=== PATIENT | male | born 1975 | race Caucasian/White ===

== ENCOUNTER 2024-05-30 17:20 | Inpatient (IN) | payer MEDICAID ==
[~2024-05-30] VITALS: Ht 165.1 cm; Wt 100.0 kg
[2024-05-30] MEDS ORDERED: 0.9% SODIUM CHLORIDE 10 ML SYRINGE IVP PRN (17:45)
[2024-05-30] MEDS ORDERED: VANCOMYCIN 1.25 GM/WATER(PEG) 250 ML IV ONE (17:45)
[2024-05-30 17:50] LABS: BASOPHILS % (AUTO) 0.3 % (0.0-2.0); EOSINOPHILS % (AUTO) 5.9 % (1.0-6.0); HEMATOCRIT 46.2 % (41-53); HEMOGLOBIN 14.6 g/dL (13.5-17.5); LYMPHOCYTES # (AUTO) 2.5 K/uL (1.0-4.8); MEAN CORPUSCULAR HEMOGLOBIN 25.7 pg (26.0-34.0); MEAN CORPUSCULAR HGB CONC 31.6 G/dL (31.0-37.0); MEAN CORPUSCULAR VOLUME 81 fL (80-100); MONOCYTES # (AUTO) 0.9 K/uL (0.1-1.0); MONOCYTES % (AUTO) 7.8 % (2.0-9.0); NEUTROPHILS # (AUTO) 7.7 K/uL (1.8-7.7); PLATELET COUNT (AUTO) 355 K/uL (150-450); RED BLOOD CELL COUNT(AUTO) 5.67 MIL/uL (4.50-5.90); RED CELL DISTRIBUTION WIDTH 15.5 % (11.5-14.5); WHITE BLOOD COUNT (AUTO) 11.8 K/uL (4.5-11.0)
[2024-05-30 17:59] LABS: ANION GAP 12 mmol/L (8-16); CALCIUM, TOTAL 8.7 mg/dL (8.8-10.5); CARBON DIOXIDE 21 mmol/L (22-29); CHLORIDE 102 mmol/L (98-107); CREATININE 1.44 mg/dL (0.60-1.30); GLOMERULAR FILTR. RATE CALC 53 mL/min (>60); GLUCOSE,RANDOM 133 mg/dL (70-110); POTASSIUM 4.5 mmol/L (3.5-5.1); SODIUM SERUM 135 mmol/L (136-145); UREA NITROGEN, BLOOD 14 mg/dL (7-18)
[2024-05-30 18:03] LABS: BILIRUBIN,DIRECT 0.1 mg/dL (0.00-0.20); BILIRUBIN,TOTAL 0.6 mg/dL (0.1-1.0); PROTHROMBIN TIME 10.6 SEC (9.4-11.6); TOTAL PROTEIN, SERUM 7.8 g/dL (6.4-8.2)
[2024-05-30] MEDS: ACETAMINOPHEN 1000 MG/ISO-OSM 100 ML IV ONE (18:03)
[2024-05-30] MEDS: SODIUM CHLORIDE 0.9% 1,000 ML IV ONE (18:03)
[2024-05-30 18:06] LABS: ALCOHOL, BLOOD (SERUM) < 3 mg/dL (0-10)
[2024-05-30 18:08] LABS: B-TYPE NATRIURETIC PEPTIDE 8 pg/mL (0-100)
[2024-05-30 18:09] LABS: CREATINE KINASE, TOTAL ONLY 133 U/L (39-308); TROPONIN I-HIGH SENSITIVITY 11 ng/L (<76)
[2024-05-30 18:10] LABS: LACTIC ACID 3.5 mmol/L (0.4-2.0)
[2024-05-30 18:13] LABS: ERYTHROCYTE SEDIMENTATION RATE 38 MM/HR (0-15)
[2024-05-30] MEDS: CLINDAMYCIN 600 MG/D5% WATER 50 ML IV ONE (18:13)
[2024-05-30] MEDS: VANCOMYCIN HCL 1.25 GM in DEXTROSE 5%-WATER 250 ML IV ONE (18:15)
[2024-05-30 18:39] LABS: COVID AG,FIA SOURCE NASAL SWAB
[2024-05-30 18:58] LABS: SARS-COV2 (COVID) ANTIGEN,FIA Negative (Negative)
[2024-05-30 18:59] LABS: INFLUENZA TYPE A NEGATIVE FOR TYPE A (NEGATIVE); INFLUENZA TYPE B NEGATIVE FOR TYPE B (NEGATIVE)
[2024-05-30] MEDS: SODIUM CHLORIDE 0.9% 2,000 ML IV ONE (19:05)
[2024-05-30] MEDS: SODIUM CHLORIDE 0.9% 1,000 ML IV SCH (19:45)
[2024-05-30] MEDS ORDERED: ONDANSETRON HCL 4 MG/2 ML VIAL IVP PRN (19:45)
[2024-05-30] MEDS: *CLINICAL-CEFEPIME DOSING CLINICAL ONE (19:45)
[2024-05-30] MEDS ORDERED: ACETAMINOPHEN 325 MG TABLET PO PRN (19:45)
[2024-05-30] MEDS: ACYCLOVIR 1,000 MG in DEXTROSE 5%-WATER 150 ML IV ONE (20:18)
[2024-05-30] MEDS: DOCUSATE SODIUM 100 MG CAPSULE PO SCH (21:00)
[2024-05-30 21:05] LABS: APPEARANCE,URINE CLEAR (CLEAR); BILIRUBIN,URINE NEGATIVE (NEGATIVE); COLOR,URINE COLORLESS (YELLOW); GLUCOSE, URINE (UA) NEGATIVE (NEGATIVE); KETONES,URINE NEGATIVE (NEGATIVE); LEUKOCYTE ESTERASE ,URINE NEGATIVE (NEGATIVE); NITRATE,URINE NEGATIVE (NEGATIVE); OCCULT BLOOD,URINE NEGATIVE (NEGATIVE); PROTEIN,URINE NEGATIVE (NEGATIVE); SPECIFIC GRAVITIY, URINE 1.008 (1.003-1.030); UROBILINOGEN,URINE <=1.0 mg/dL (<=1.0)
[2024-05-30 21:18] LABS: ALCOHOL, URINE DRUG SCREEN NEGATIVE (NEGATIVE); AMPHET/METH SCREEN,URINE NEGATIVE (NEGATIVE); BARBITURATE SCREEN, URINE NEGATIVE (NEGATIVE); BENZODIAZEPINES SCREEN,URINE NEGATIVE (NEGATIVE); CANNABINOID SCREEN,URINE NEGATIVE (NEGATIVE); COCAINE SCREEN,URINE NEGATIVE (NEGATIVE); METHADONE SCREEN, URINE NEGATIVE (NEGATIVE); OPIATE SCREEN,URINE NEGATIVE (NEGATIVE); PHENCYCLIDINE SCREEN,URINE NEGATIVE (NEGATIVE)
[2024-05-30 22:00] VITALS: BP 134/79; PULSE 72; RESP 18; TEMP 98.2; O2SAT 99
[2024-05-30] MEDS: CEFEPIME HCL 2 GM in DEXTROSE 5%-WATER 50 ML IV SCH (22:00)
[2024-05-30] MEDS: HEPARIN SODIUM,PORCINE 5,000 UNITS/ML VIAL SQ SCH (23:32)
[2024-05-31] MEDS: SODIUM CHLORIDE 0.9% 1,000 ML IV SCH (01:59)
[2024-05-31 05:11] VITALS: BP 123/69; PULSE 71; RESP 18; TEMP 98.7; O2SAT 96
[2024-05-31 08:25] LABS: BASOPHILS % (AUTO) 0.2 % (0.0-2.0); HEMATOCRIT 42.2 % (41-53); HEMOGLOBIN 13.4 g/dL (13.5-17.5); LYMPHOCYTES # (AUTO) 1.6 K/uL (1.0-4.8); LYMPHOCYTES % (AUTO) 15.9 % (22.0-44.0); MEAN CORPUSCULAR HEMOGLOBIN 25.8 pg (26.0-34.0); MEAN CORPUSCULAR HGB CONC 31.8 G/dL (31.0-37.0); MEAN CORPUSCULAR VOLUME 81 fL (80-100); MONOCYTES # (AUTO) 0.7 K/uL (0.1-1.0); MONOCYTES % (AUTO) 6.7 % (2.0-9.0); NEUTROPHILS % (AUTO) 70.2 % (40.0-70.0); PLATELET COUNT (AUTO) 259 K/uL (150-450); RED BLOOD CELL COUNT(AUTO) 5.21 MIL/uL (4.50-5.90); RED CELL DISTRIBUTION WIDTH 15.6 % (11.5-14.5)
[2024-05-31 08:39] LABS: ANION GAP 10 mmol/L (8-16); CARBON DIOXIDE 25 mmol/L (22-29); CHLORIDE 105 mmol/L (98-107); CREATININE 0.84 mg/dL (0.60-1.30); GLOMERULAR FILTR. RATE CALC > 60 mL/min (>60); GLUCOSE,RANDOM 92 mg/dL (70-110); SODIUM SERUM 140 mmol/L (136-145); UREA NITROGEN, BLOOD 10 mg/dL (7-18)
[2024-05-31 09:08] VITALS: BP 114/67; PULSE 74; RESP 18; TEMP 98; O2SAT 99
[2024-05-31 16:07] VITALS: BP 111/67; PULSE 79; RESP 18; TEMP 98; O2SAT 98
[2024-05-31 20:40] VITALS: BP 120/66; PULSE 87; RESP 18; TEMP 98.2; O2SAT 96
[2024-05-31] MEDS: TRIAMCINOLONE 0.1% 15 GM OINTMENT TP SCH (20:54)
[2024-05-31] MEDS: DOXYCYCLINE HYCLATE 100 MG TABLET PO SCH (20:54)
[2024-05-31 22:06] LABS: HIV 1-2 SCREEN 4TH GEN W/RFLX Non Reactive (Non Reactive)
[2024-06-01 00:06] LABS: GLU 6-PHOSPATE DEHYDRO-RBC 4.57 x10E6/uL (4.14-5.80)
[2024-06-01 04:50] VITALS: BP 128/80; PULSE 87; RESP 18; TEMP 97.3; O2SAT 99
[2024-06-01 07:07] LABS: GLU 6-PHOSPATE DEHYDRO-QUANT 419 (127-427)
[2024-06-01 08:00] VITALS: BP 117/84; PULSE 75; RESP 18; TEMP 97.3; O2SAT 98
[2024-06-01] MEDS: OMEPRAZOLE 10 MG CAPSULE PO SCH (09:23)
[2024-06-01] MEDS: PredniSONE 20 MG TABLET PO SCH (09:24)
[2024-06-01 16:00] VITALS: BP 120/78; PULSE 74; RESP 18; TEMP 97.1; O2SAT 99
[2024-06-01 19:45] VITALS: BP 117/79; PULSE 86; RESP 18; TEMP 98.8; O2SAT 96
[2024-06-01] MEDS: TRIAMCINOLONE 0.1% TP SCH (21:05)
[2024-06-02 06:41] VITALS: BP 127/70; PULSE 66; RESP 18; TEMP 97.8; O2SAT 97
[2024-06-02 07:12] VITALS: BP 111/74; PULSE 63; RESP 20; TEMP 97.7; O2SAT 96
[2024-06-02] MEDS: MULTIVITAMINS WITH MINERALS, THERAPEUTIC TABLET PO SCH (08:59)
[2024-06-02] MEDS ORDERED: DOXY50 PO (10:27)
[2024-06-02] MEDS ORDERED: TRIA15CR49 TP (10:27)
[2024-06-02] MEDS ORDERED: MULT-1203 PO (10:28)
[2024-06-02] MEDS ORDERED: PRED-554 PO (10:29)
[2024-06-02] MEDS ORDERED: OMEP-148 PO (10:29)
== END 2024-06-02 14:35 | disposition home or self-care (01) | DRG 381 ==
LOC: EMS 17:20 → EDH 20:16 → 6N 21:41
PROVIDERS: ADMIT Internal Medicine; ATTEND Internal Medicine
DX: L12.0 Bullous pemphigoid (principal); N17.9 Acute kidney failure, unspecified; F32.2 Major depressive disorder, single episode, severe without psychotic features; R45.851 Suicidal ideations; E66.9 Obesity, unspecified; Z68.36 Body mass index [BMI] 36.0-36.9, adult; E87.70 Fluid overload, unspecified; J45.909 Unspecified asthma, uncomplicated; Z59.00 Homelessness unspecified
CPT/HCPCS: 71045; 80048; 80076; 80307; 81003; 82550; 82955; 83605; 83735; 83880; 84145; 84484; 85025; 85041; 85610; 85651; 86140; 86592; 87040; 87389; 87430; 87804; 93005; 96365; 96368; 97163; 97530; 99285; G0480; J0131; J0133; J0692; J1644; J3490; J7030; J7060; 36415-L1; 36415-TC

== ENCOUNTER → 2024-06-03 | Emergency (ER) | payer MEDICAID ==
[~2024-06-03] VITALS: Ht 165.1 cm; Wt 100.0 kg
[~2024-06-03] MED LIST: DOXY50 PO; MULT-1203 PO; OMEP-148 PO; PRED-554 PO; TRIA15CR49 TP
[2024-06-03 11:06] VITALS: BP 135/89; PULSE 64; RESP 16; TEMP 97.7; O2SAT 99
[2024-06-03 12:25] LABS: ANION GAP 5 mmol/L (8-16); BASOPHILS % (AUTO) 0.5 % (0.0-2.0); CALCIUM, TOTAL 8.3 mg/dL (8.8-10.5); CARBON DIOXIDE 27 mmol/L (22-29); CHLORIDE 106 mmol/L (98-107); CREATININE 0.83 mg/dL (0.60-1.30); EOSINOPHILS % (AUTO) 6.1 % (1.0-6.0); GLOMERULAR FILTR. RATE CALC > 60 mL/min (>60); GLUCOSE,RANDOM 92 mg/dL (70-110); HEMATOCRIT 39.2 % (41-53); HEMOGLOBIN 12.4 g/dL (13.5-17.5); LYMPHOCYTES # (AUTO) 2.7 K/uL (1.0-4.8); MEAN CORPUSCULAR HEMOGLOBIN 25.6 pg (26.0-34.0); MEAN CORPUSCULAR HGB CONC 31.8 G/dL (31.0-37.0); MEAN CORPUSCULAR VOLUME 81 fL (80-100); MONOCYTES # (AUTO) 1.4 K/uL (0.1-1.0); MONOCYTES % (AUTO) 10.8 % (2.0-9.0); NEUTROPHILS % (AUTO) 61.6 % (40.0-70.0); PLATELET COUNT (AUTO) 280 K/uL (150-450); POTASSIUM 3.7 mmol/L (3.5-5.1); RED BLOOD CELL COUNT(AUTO) 4.86 MIL/uL (4.50-5.90); RED CELL DISTRIBUTION WIDTH 15.6 % (11.5-14.5); SODIUM SERUM 138 mmol/L (136-145); UREA NITROGEN, BLOOD 15 mg/dL (7-18)
[2024-06-03] MEDS: PredniSONE 20 MG TABLET PO ONE (13:34)
== END | disposition home or self-care (01) ==
LOC: EMS 10:48
DX: L12.0 Bullous pemphigoid (principal); F32.9 Major depressive disorder, single episode, unspecified; G43.909 Migraine, unspecified, not intractable, without status migrainosus; Z79.899 Other long term (current) drug therapy; Z79.52 Long term (current) use of systemic steroids
CPT/HCPCS: 99283; 80048; 85025; 36415; J7512

== ENCOUNTER 2024-07-02 09:26 | Inpatient (IN) | payer MEDICAID ==
[~2024-07-02] VITALS: Ht 157.5 cm; Wt 100.0 kg
[~2024-07-02 09:26] MED LIST changes: -DOXY50 PO; -MULT-1203 PO; -OMEP-148 PO; +SERT-162 PO; +SERT-440 PO
[2024-07-02] MEDS ORDERED: HYDR50CA6 PO (09:40)
[2024-07-02] MEDS ORDERED: OMEP1CAP32 PO (09:40)
[2024-07-02] MEDS ORDERED: OMEP20CA12 PO (11:27)
[2024-07-02] MEDS ORDERED: PRED50TA2 PO (11:27)
[2024-07-02] MEDS ORDERED: MULT-662 PO (11:27)
[2024-07-02] MEDS ORDERED: TRI115O TP (11:27)
[2024-07-02] MEDS ORDERED: VANCOMYCIN 1.25 GM/WATER(PEG) 250 ML IV ONE (11:30)
[2024-07-02 12:04] LABS: BASOPHILS % (AUTO) 0.1 % (0.0-2.0); EOSINOPHILS % (AUTO) 0.1 % (1.0-6.0); HEMATOCRIT 39.4 % (41-53); HEMOGLOBIN 12.7 g/dL (13.5-17.5); LYMPHOCYTES # (AUTO) 1.1 K/uL (1.0-4.8); LYMPHOCYTES % (AUTO) 5.2 % (22.0-44.0); MEAN CORPUSCULAR HEMOGLOBIN 25.1 pg (26.0-34.0); MEAN CORPUSCULAR HGB CONC 32.2 G/dL (31.0-37.0); MEAN CORPUSCULAR VOLUME 78 fL (80-100); MONOCYTES # (AUTO) 0.6 K/uL (0.1-1.0); MONOCYTES % (AUTO) 2.7 % (2.0-9.0); NEUTROPHILS # (AUTO) 19.2 K/uL (1.8-7.7); PLATELET COUNT (AUTO) 363 K/uL (150-450); RED BLOOD CELL COUNT(AUTO) 5.05 MIL/uL (4.50-5.90); RED CELL DISTRIBUTION WIDTH 16.3 % (11.5-14.5); WHITE BLOOD COUNT (AUTO) 20.8 K/uL (4.5-11.0)
[2024-07-02 12:06] LABS: NEUTROPHILS % (AUTO) 91.9 % (40.0-70.0)
[2024-07-02 12:12] LABS: ANION GAP 8 mmol/L (8-16); CALCIUM, TOTAL 8.5 mg/dL (8.8-10.5); CARBON DIOXIDE 27 mmol/L (22-29); CHLORIDE 96 mmol/L (98-107); CREATININE 1.09 mg/dL (0.60-1.30); GLOMERULAR FILTR. RATE CALC > 60 mL/min (>60); GLUCOSE,RANDOM 105 mg/dL (70-110); POTASSIUM 4.1 mmol/L (3.5-5.1); SODIUM SERUM 130 mmol/L (136-145); UREA NITROGEN, BLOOD 12 mg/dL (7-18)
[2024-07-02] MEDS: PIPERACILLIN SODIUM/TAZOBACTAM 4.5 GM in DEXTROSE 5%-WATER 100 ML IV ONE (12:27)
[2024-07-02 12:29] LABS: LACTIC ACID 1.5 mmol/L (0.4-2.0)
[2024-07-02] MEDS ORDERED: SODIUM CHLORIDE 0.9% 100 ML ONE (12:37)
[2024-07-02] MEDS ORDERED: IOHEXOL 350 MG/ML 100 ML VIAL ONE (12:37)
[2024-07-02 13:22] LABS: RBC MORPHOLOGY COMMENT ABNORMAL RBC MORPH
[2024-07-02] MEDS: VANCOMYCIN HCL 1.25 GM in DEXTROSE 5%-WATER 250 ML IV ONE (13:40)
[2024-07-02] MEDS ORDERED: ONDANSETRON HCL 4 MG/2 ML VIAL IVP PRN (15:00)
[2024-07-02] MEDS ORDERED: ZOLPIDEM TARTRATE 5 MG TABLET PO PRN (15:00)
[2024-07-02] MEDS ORDERED: MORPHINE SULFATE 2 MG/ML SYRINGE IVP PRN (15:00)
[2024-07-02] MEDS ORDERED: BISACODYL 10 MG RECTAL RECTAL SUPPOSITORY PR PRN (15:00)
[2024-07-02] MEDS ORDERED: HYDROCODONE/ACETAMINOPHEN 5-325 MG TABLET PO PRN (15:00)
[2024-07-02] MEDS ORDERED: MAGNESIUM HYDROXIDE SUSPENSION 30 ML UDCUP PO PRN (15:00)
[2024-07-02] MEDS ORDERED: ACETAMINOPHEN 325 MG TABLET PO PRN (15:00)
[2024-07-02] MEDS: HEPARIN SODIUM,PORCINE 5,000 UNITS/ML VIAL SQ SCH (15:37)
[2024-07-02] MEDS ORDERED: SODIUM CHLORIDE 0.9% 500 ML IV ONE (18:49)
[2024-07-02] MEDS: PIPERACILLIN/TAZO 3.375 GM/D5W 50 ML IV SCH (18:50)
[2024-07-02 20:04] VITALS: BP 123/82; PULSE 66; RESP 18; TEMP 97.9; O2SAT 96
[2024-07-02] MEDS: DOCUSATE SODIUM 100 MG CAPSULE PO SCH (20:07)
[2024-07-02] MEDS: VANCOMYCIN HCL 1.25 GM in DEXTROSE 5%-WATER 250 ML IV SCH (20:08)
[2024-07-03] MEDS ORDERED: EPHEDrine SULFATE 50 MG/ML VIAL ONE (05:46)
[2024-07-03] MEDS ORDERED: ONDANSETRON HCL 4 MG/2 ML VIAL ONE (05:46)
[2024-07-03] MEDS ORDERED: ROCURONIUM BROMIDE 10 MG/ML 5 ML VIAL ONE (05:46)
[2024-07-03] MEDS ORDERED: PROPOFOL 1% 20 ML VIAL IVP ONE (05:46)
[2024-07-03] MEDS ORDERED: 0.9% SODIUM CHLORIDE 10 ML VIAL ONE (05:46)
[2024-07-03] MEDS ORDERED: MIDAZOLAM HCL 2 MG/2 ML VIAL ONE (05:46)
[2024-07-03] MEDS ORDERED: SUGAMMADEX SODIUM 200 MG/2 ML VIAL IVP ONE (05:46)
[2024-07-03] MEDS ORDERED: LIDOCAINE/PF 2% 5 ML VIAL ONE (05:46)
[2024-07-03] MEDS ORDERED: FentaNYL CITRATE PF 100 MCG/2 ML VIAL ONE (05:46)
[2024-07-03 05:48] VITALS: BP 118/75; PULSE 65; RESP 18; TEMP 97.7; O2SAT 98
[2024-07-03 07:34] LABS: BASOPHILS % (AUTO) 0.4 % (0.0-2.0); HEMATOCRIT 37.1 % (41-53); HEMOGLOBIN 12.1 g/dL (13.5-17.5); LYMPHOCYTES # (AUTO) 2.7 K/uL (1.0-4.8); LYMPHOCYTES % (AUTO) 18.1 % (22.0-44.0); MEAN CORPUSCULAR HEMOGLOBIN 25.5 pg (26.0-34.0); MEAN CORPUSCULAR HGB CONC 32.6 G/dL (31.0-37.0); MEAN CORPUSCULAR VOLUME 78 fL (80-100); MONOCYTES # (AUTO) 0.9 K/uL (0.1-1.0); MONOCYTES % (AUTO) 5.7 % (2.0-9.0); NEUTROPHILS # (AUTO) 11.4 K/uL (1.8-7.7); NEUTROPHILS % (AUTO) 74.8 % (40.0-70.0); PLATELET COUNT (AUTO) 336 K/uL (150-450); RED BLOOD CELL COUNT(AUTO) 4.74 MIL/uL (4.50-5.90); RED CELL DISTRIBUTION WIDTH 16.3 % (11.5-14.5); WHITE BLOOD COUNT (AUTO) 15.2 K/uL (4.5-11.0)
[2024-07-03 07:52] LABS: ANION GAP 5 mmol/L (8-16); CALCIUM, TOTAL 8.5 mg/dL (8.8-10.5); CARBON DIOXIDE 32 mmol/L (22-29); CHLORIDE 97 mmol/L (98-107); CREATININE 0.99 mg/dL (0.60-1.30); GLOMERULAR FILTR. RATE CALC > 60 mL/min (>60); GLUCOSE,RANDOM 82 mg/dL (70-110); POTASSIUM 4.8 mmol/L (3.5-5.1); SODIUM SERUM 134 mmol/L (136-145); UREA NITROGEN, BLOOD 17 mg/dL (7-18)
[2024-07-03 08:00] VITALS: BP 121/83; PULSE 64; RESP 18; TEMP 97.9; O2SAT 98
[2024-07-03] MEDS: PANTOPRAZOLE SODIUM 40 MG DR TABLET PO SCH (08:37)
[2024-07-03] MEDS: VANCOMYCIN 1.5 GM/WATER(PEG) 300 ML IV SCH (09:10)
[2024-07-03] MEDS ORDERED: BUPIVACAINE HCL/PF 0.5% 30 ML VIAL ONE (13:37)
[2024-07-03] MEDS ORDERED: LIDOCAINE 2%/EPI 1:200,000/PF 20 ML VIAL ONE (13:37)
[2024-07-03] MEDS: ETHYL ALCOHOL 62% ANTISEPTIC NASAL SANITIZER 0.6 ML AMPUL NASAL ONE (13:43)
[2024-07-03] MEDS ORDERED: RINGERS SOLUTION,LACTATED 1,000 ML IV ONE (13:46)
[2024-07-03] MEDS ORDERED: MEPERIDINE-PF 25 MG/ML VIAL IVP PRN (14:00)
[2024-07-03] MEDS ORDERED: FentaNYL CITRATE PF 100 MCG/2 ML VIAL IVP PRN (14:00)
[2024-07-03] MEDS ORDERED: HYDROmorphone HCL 2 MG/ML SYRINGE IVP PRN (14:00)
[2024-07-03] MEDS: CHLORHEXIDINE GLUCONATE 2% TOWELETTE [2'S/6'S] TP ONE (14:04)
[2024-07-03] MEDS: RINGERS SOLUTION,LACTATED 1,000 ML IV ONE (14:06)
[2024-07-03] MEDS ORDERED: ACETAMINOPHEN 500 MG TABLET PO PRN (15:30)
[2024-07-03] MEDS ORDERED: ONDANSETRON HCL 4 MG/2 ML VIAL IM PRN (15:30)
[2024-07-03 16:27] VITALS: BP 112/72; PULSE 61; RESP 19; TEMP 98; O2SAT 98
[2024-07-03] MEDS: HYDROCODONE/ACETAMINOPHEN 5-325 MG TABLET PO PRN (17:11)
[2024-07-03 17:30] VITALS: PULSE 65; RESP 20; O2SAT 98
[2024-07-03 19:30] VITALS: BP 95/59; PULSE 74; RESP 20; TEMP 97.5; O2SAT 97
[2024-07-03] MEDS: OXYGEN THERAPY IH SCH (20:00)
[2024-07-04 03:24] VITALS: BP 97/70; PULSE 65; RESP 18; TEMP 98.6; O2SAT 96
[2024-07-04 07:00] VITALS: BP 108/77; PULSE 67; RESP 19; TEMP 98.1; O2SAT 98
[2024-07-04 08:42] LABS: BASOPHILS % (AUTO) 1.4 % (0.0-2.0); EOSINOPHILS % (AUTO) 1.8 % (1.0-6.0); HEMATOCRIT 38.1 % (41-53); HEMOGLOBIN 12.1 g/dL (13.5-17.5); LYMPHOCYTES # (AUTO) 1.7 K/uL (1.0-4.8); LYMPHOCYTES % (AUTO) 14.5 % (22.0-44.0); MEAN CORPUSCULAR HEMOGLOBIN 25.1 pg (26.0-34.0); MEAN CORPUSCULAR HGB CONC 31.8 G/dL (31.0-37.0); MEAN CORPUSCULAR VOLUME 79 fL (80-100); MONOCYTES # (AUTO) 0.5 K/uL (0.1-1.0); MONOCYTES % (AUTO) 4.3 % (2.0-9.0); NEUTROPHILS # (AUTO) 9.1 K/uL (1.8-7.7); PLATELET COUNT (AUTO) 326 K/uL (150-450); RED BLOOD CELL COUNT(AUTO) 4.83 MIL/uL (4.50-5.90); RED CELL DISTRIBUTION WIDTH 16.7 % (11.5-14.5); WHITE BLOOD COUNT (AUTO) 11.6 K/uL (4.5-11.0)
[2024-07-04 08:49] LABS: ANION GAP 8 mmol/L (8-16); CALCIUM, TOTAL 8.3 mg/dL (8.8-10.5); CARBON DIOXIDE 27 mmol/L (22-29); CHLORIDE 96 mmol/L (98-107); CREATININE 1.14 mg/dL (0.60-1.30); GLOMERULAR FILTR. RATE CALC > 60 mL/min (>60); GLUCOSE,RANDOM 86 mg/dL (70-110); POTASSIUM 3.9 mmol/L (3.5-5.1); SODIUM SERUM 131 mmol/L (136-145); UREA NITROGEN, BLOOD 12 mg/dL (7-18)
[2024-07-04 15:00] VITALS: BP 123/104; PULSE 61; RESP 19; TEMP 97.3; O2SAT 99
[2024-07-04] MEDS: SERTRALINE HCL 100 MG TABLET PO SCH (17:14)
[2024-07-04] MEDS: ETHYL ALCOHOL 62% ANTISEPTIC NASAL SANITIZER 0.6 ML AMPUL NASAL SCH (20:29)
[2024-07-04 20:38] VITALS: BP 110/70; PULSE 75; RESP 18; TEMP 98.6; O2SAT 99
[2024-07-05] MEDS ORDERED: SODIUM CHLORIDE 0.9% 250 ML IV ONE (02:20)
[2024-07-05 04:00] VITALS: BP 120/71; PULSE 59; RESP 18; TEMP 97.7; O2SAT 100
[2024-07-05 08:39] VITALS: BP 132/81; PULSE 60; RESP 18; TEMP 97.8; O2SAT 100
[2024-07-05 09:42] LABS: BASOPHILS % (AUTO) 0.5 % (0.0-2.0); HEMOGLOBIN 11.8 g/dL (13.5-17.5); LYMPHOCYTES # (AUTO) 1.4 K/uL (1.0-4.8); LYMPHOCYTES % (AUTO) 16.3 % (22.0-44.0); MEAN CORPUSCULAR HGB CONC 31.8 G/dL (31.0-37.0); MEAN CORPUSCULAR VOLUME 79 fL (80-100); MONOCYTES # (AUTO) 0.3 K/uL (0.1-1.0); MONOCYTES % (AUTO) 3.1 % (2.0-9.0); NEUTROPHILS # (AUTO) 6.7 K/uL (1.8-7.7); NEUTROPHILS % (AUTO) 77.1 % (40.0-70.0); PLATELET COUNT (AUTO) 340 K/uL (150-450); RED BLOOD CELL COUNT(AUTO) 4.71 MIL/uL (4.50-5.90); RED CELL DISTRIBUTION WIDTH 16.4 % (11.5-14.5); WHITE BLOOD COUNT (AUTO) 8.7 K/uL (4.5-11.0)
[2024-07-05 09:58] LABS: CALCIUM, TOTAL 8.3 mg/dL (8.8-10.5); POTASSIUM 4.1 mmol/L (3.5-5.1); SODIUM SERUM 132 mmol/L (136-145); UREA NITROGEN, BLOOD 11 mg/dL (7-18)
[2024-07-05 10:58] LABS: ANION GAP 9 mmol/L (8-16); CARBON DIOXIDE 25 mmol/L (22-29); CHLORIDE 98 mmol/L (98-107); CREATININE 1.25 mg/dL (0.60-1.30); GLOMERULAR FILTR. RATE CALC > 60 mL/min (>60); GLUCOSE,RANDOM 163 mg/dL (70-110)
[2024-07-05] MEDS: CLINDAMYCIN HCL 300 MG PO SCH (15:56)
[2024-07-05 15:57] VITALS: BP 133/83; PULSE 72; RESP 18; TEMP 98.2; O2SAT 100
[2024-07-05 20:29] VITALS: BP 127/86; PULSE 74; RESP 18; TEMP 98.2; O2SAT 100
[2024-07-06 04:05] VITALS: BP 130/78; PULSE 65; RESP 16; TEMP 97.9; O2SAT 100
[2024-07-06 08:18] VITALS: BP 125/77; PULSE 62; RESP 18; TEMP 97.9; O2SAT 100
[2024-07-06 16:00] VITALS: BP 130/75; PULSE 70; RESP 19; TEMP 98; O2SAT 100
[2024-07-06 19:41] VITALS: BP 119/78; PULSE 74; RESP 19; TEMP 98.6; O2SAT 98
[2024-07-07 04:45] VITALS: BP 124/82; PULSE 67; RESP 18; TEMP 97.5; O2SAT 99
[2024-07-07 08:30] VITALS: BP 122/96; PULSE 71; RESP 18; TEMP 98.1; O2SAT 98
[2024-07-07 16:15] VITALS: BP 128/88; PULSE 77; RESP 18; TEMP 98; O2SAT 99
[2024-07-07 20:00] VITALS: BP 117/79; PULSE 67; RESP 20; TEMP 98.1; O2SAT 99
[2024-07-08 04:00] VITALS: BP 115/78; PULSE 65; RESP 18; TEMP 97.5; O2SAT 99
[2024-07-08 07:00] VITALS: BP 117/84; PULSE 60; RESP 19; TEMP 97.5; O2SAT 99
[2024-07-08 19:54] VITALS: BP 115/91; PULSE 85; RESP 18; TEMP 98.4; O2SAT 98
[2024-07-09 06:01] VITALS: BP 112/72; PULSE 69; RESP 18; TEMP 97.5; O2SAT 96
[2024-07-09 07:36] LABS: BASOPHILS % (AUTO) 0.9 % (0.0-2.0); EOSINOPHILS % (AUTO) 3.2 % (1.0-6.0); HEMATOCRIT 39.4 % (41-53); HEMOGLOBIN 12.8 g/dL (13.5-17.5); LYMPHOCYTES # (AUTO) 1.8 K/uL (1.0-4.8); LYMPHOCYTES % (AUTO) 30.4 % (22.0-44.0); MEAN CORPUSCULAR HEMOGLOBIN 25.4 pg (26.0-34.0); MEAN CORPUSCULAR HGB CONC 32.4 G/dL (31.0-37.0); MEAN CORPUSCULAR VOLUME 78 fL (80-100); MONOCYTES # (AUTO) 0.6 K/uL (0.1-1.0); MONOCYTES % (AUTO) 10.8 % (2.0-9.0); NEUTROPHILS # (AUTO) 3.2 K/uL (1.8-7.7); NEUTROPHILS % (AUTO) 54.7 % (40.0-70.0); PLATELET COUNT (AUTO) 431 K/uL (150-450); RED BLOOD CELL COUNT(AUTO) 5.03 MIL/uL (4.50-5.90); RED CELL DISTRIBUTION WIDTH 16.2 % (11.5-14.5); WHITE BLOOD COUNT (AUTO) 5.9 K/uL (4.5-11.0)
[2024-07-09 08:06] LABS: ANION GAP 5 mmol/L (8-16); CALCIUM, TOTAL 8.8 mg/dL (8.8-10.5); CARBON DIOXIDE 30 mmol/L (22-29); CHLORIDE 97 mmol/L (98-107); CREATININE 1.02 mg/dL (0.60-1.30); GLOMERULAR FILTR. RATE CALC > 60 mL/min (>60); GLUCOSE,RANDOM 80 mg/dL (70-110); POTASSIUM 4.6 mmol/L (3.5-5.1); SODIUM SERUM 132 mmol/L (136-145); UREA NITROGEN, BLOOD 18 mg/dL (7-18)
[2024-07-09 08:15] VITALS: BP 130/61; PULSE 60; RESP 18; TEMP 97.5; O2SAT 98
[2024-07-09 16:19] VITALS: BP 120/62; PULSE 79; RESP 18; TEMP 97.5; O2SAT 96
[2024-07-09 19:55] VITALS: BP 115/79; PULSE 73; RESP 18; TEMP 98.1; O2SAT 96
[2024-07-10 04:20] VITALS: BP 102/69; PULSE 65; RESP 19; TEMP 97.9; O2SAT 99
[2024-07-10 09:28] VITALS: BP 117/77; PULSE 85; RESP 17; TEMP 98.6; O2SAT 99
[2024-07-10 16:19] VITALS: BP 116/74; PULSE 76; RESP 18; TEMP 97.9; O2SAT 97
[2024-07-10 20:20] VITALS: BP 101/68; PULSE 73; RESP 18; TEMP 98.1; O2SAT 98
[2024-07-11 04:25] VITALS: BP 102/72; PULSE 63; RESP 18; TEMP 97.3; O2SAT 100
[2024-07-11 08:14] VITALS: BP 104/64; PULSE 71; RESP 18; TEMP 98.2; O2SAT 99
[2024-07-11 16:47] VITALS: BP 108/77; PULSE 77; RESP 18; TEMP 98.4; O2SAT 99
[2024-07-11 20:46] VITALS: BP 113/74; PULSE 74; RESP 18; TEMP 98.2; O2SAT 99
[2024-07-12 06:31] VITALS: BP 115/82; PULSE 61; RESP 20; TEMP 98.1; O2SAT 98
[2024-07-12 07:51] VITALS: BP 122/84; PULSE 64; RESP 18; TEMP 97.3; O2SAT 98
[2024-07-12 16:00] VITALS: BP 107/67; PULSE 69; RESP 18; TEMP 98.2; O2SAT 100
[2024-07-12 20:17] VITALS: BP 108/79; PULSE 76; RESP 19; TEMP 97.7; O2SAT 97
[2024-07-13 05:19] VITALS: BP 124/83; PULSE 66; RESP 18; TEMP 98; O2SAT 97
[2024-07-13 07:27] VITALS: BP 112/81; PULSE 61; RESP 18; TEMP 97.7; O2SAT 99
[2024-07-13 15:30] VITALS: BP 110/76; PULSE 72; RESP 18; TEMP 98.1; O2SAT 97
[2024-07-13 19:56] VITALS: BP 127/89; PULSE 76; RESP 18; TEMP 98.6; O2SAT 97
[2024-07-14 05:37] VITALS: BP 115/70; PULSE 67; RESP 18; TEMP 97.5; O2SAT 97
[2024-07-14 07:33] VITALS: BP 122/72; PULSE 69; RESP 18; TEMP 97.9; O2SAT 98
[2024-07-14 15:37] VITALS: BP 124/83; PULSE 76; RESP 20; TEMP 98.1; O2SAT 96
[2024-07-14 19:44] VITALS: BP 109/79; PULSE 71; RESP 18; TEMP 98.4; O2SAT 98
[2024-07-15 04:28] VITALS: BP 107/66; PULSE 66; RESP 18; TEMP 97.9; O2SAT 98
[2024-07-15 08:11] VITALS: BP 135/90; PULSE 67; RESP 20; TEMP 97.9; O2SAT 100
[2024-07-15 16:27] VITALS: BP 106/81; PULSE 70; RESP 20; TEMP 98.1; O2SAT 99
[2024-07-15 19:32] VITALS: BP 110/74; PULSE 79; RESP 18; TEMP 98.2; O2SAT 98
[2024-07-16 04:41] VITALS: BP 108/64; PULSE 62; RESP 18; TEMP 97.7; O2SAT 98
[2024-07-16 08:06] VITALS: BP 111/72; PULSE 66; RESP 18; TEMP 98; O2SAT 99
[2024-07-16 11:47] LABS: BASOPHILS % (AUTO) 0.9 % (0.0-2.0); EOSINOPHILS % (AUTO) 3.7 % (1.0-6.0); HEMOGLOBIN 12.5 g/dL (13.5-17.5); LYMPHOCYTES # (AUTO) 1.6 K/uL (1.0-4.8); LYMPHOCYTES % (AUTO) 26.6 % (22.0-44.0); MEAN CORPUSCULAR HEMOGLOBIN 25.1 pg (26.0-34.0); MEAN CORPUSCULAR VOLUME 79 fL (80-100); MONOCYTES # (AUTO) 0.6 K/uL (0.1-1.0); MONOCYTES % (AUTO) 10.5 % (2.0-9.0); NEUTROPHILS # (AUTO) 3.5 K/uL (1.8-7.7); NEUTROPHILS % (AUTO) 58.3 % (40.0-70.0); PLATELET COUNT (AUTO) 298 K/uL (150-450); RED BLOOD CELL COUNT(AUTO) 4.97 MIL/uL (4.50-5.90); RED CELL DISTRIBUTION WIDTH 17.1 % (11.5-14.5); WHITE BLOOD COUNT (AUTO) 5.9 K/uL (4.5-11.0)
[2024-07-16 11:53] LABS: ANION GAP 5 mmol/L (8-16); CALCIUM, TOTAL 8.6 mg/dL (8.8-10.5); CARBON DIOXIDE 29 mmol/L (22-29); CHLORIDE 102 mmol/L (98-107); CREATININE 0.99 mg/dL (0.60-1.30); GLOMERULAR FILTR. RATE CALC > 60 mL/min (>60); GLUCOSE,RANDOM 84 mg/dL (70-110); POTASSIUM 4.1 mmol/L (3.5-5.1); SODIUM SERUM 136 mmol/L (136-145); UREA NITROGEN, BLOOD 14 mg/dL (7-18)
[2024-07-16 20:00] VITALS: BP 97/61; PULSE 70; RESP 18; TEMP 100; TEMP 98.9; O2SAT 100
[2024-07-17 04:23] VITALS: BP 106/73; PULSE 63; RESP 18; TEMP 98.1; O2SAT 98
[2024-07-17 08:01] VITALS: BP 116/83; PULSE 64; RESP 18; TEMP 98.1; O2SAT 99
[2024-07-17 15:46] VITALS: BP 99/77; PULSE 77; RESP 20; TEMP 98.2; O2SAT 100
[2024-07-17 20:22] VITALS: BP 99/65; PULSE 70; RESP 16; TEMP 98.4; O2SAT 99
[2024-07-18 05:10] VITALS: BP 113/64; PULSE 61; RESP 18; TEMP 97.9; O2SAT 99
[2024-07-18] MEDS: MULTIVITAMINS WITH MINERALS, THERAPEUTIC TABLET PO SCH (11:41)
[2024-07-18 16:04] VITALS: BP 113/87; PULSE 66; RESP 16; TEMP 98.2; O2SAT 99
[2024-07-18 20:22] VITALS: BP 111/68; PULSE 67; RESP 18; TEMP 98.1; O2SAT 98
[2024-07-19 04:59] VITALS: BP 106/61; PULSE 65; RESP 18; TEMP 97.7; O2SAT 99
[2024-07-19 08:24] VITALS: BP 115/76; PULSE 63; RESP 18; TEMP 97.3; O2SAT 100
[2024-07-19 15:16] VITALS: BP 102/69; PULSE 71; RESP 18; TEMP 98.2; O2SAT 100
[2024-07-19 19:58] VITALS: BP 112/85; PULSE 86; RESP 16; TEMP 98.1; O2SAT 97
[2024-07-20 04:15] VITALS: BP 99/63; PULSE 64; RESP 16; TEMP 98.1; O2SAT 98
[2024-07-20 08:02] VITALS: BP 118/81; PULSE 64; RESP 17; TEMP 97.9; O2SAT 98
[2024-07-20 15:29] VITALS: BP 112/82; PULSE 72; RESP 19; TEMP 97.3; O2SAT 98
[2024-07-20 19:52] VITALS: BP 111/82; PULSE 74; RESP 19; TEMP 98.2; O2SAT 97
[2024-07-21 05:00] VITALS: BP 97/58; PULSE 67; RESP 16; TEMP 97.8; O2SAT 99
[2024-07-21 07:39] VITALS: BP 104/75; PULSE 63; RESP 18; TEMP 97.9; O2SAT 63
[2024-07-21 15:24] VITALS: BP 100/67; PULSE 78; RESP 20; TEMP 98.4; O2SAT 95
[2024-07-21 19:28] VITALS: BP 101/67; PULSE 82; RESP 20; TEMP 98.1; O2SAT 95
[2024-07-22 03:57] VITALS: BP 110/74; PULSE 63; RESP 18; TEMP 97.5; O2SAT 98
[2024-07-22 08:28] VITALS: BP 111/81; PULSE 60; RESP 18; TEMP 98.2; O2SAT 98
[2024-07-22 15:36] VITALS: BP 108/81; PULSE 77; RESP 18; TEMP 97.9; O2SAT 100
[2024-07-22 20:40] VITALS: BP 142/76; PULSE 70; RESP 20; TEMP 98.1; O2SAT 97
[2024-07-23 04:50] VITALS: BP 108/64; PULSE 61; RESP 18; TEMP 97.5; O2SAT 100
[2024-07-23 07:56] VITALS: BP_SYST 114; BP_SYST 128; BP_DIAS 68; BP_DIAS 74; PULSE 64; PULSE 74; RESP 18; TEMP 97.9; O2SAT 98; O2SAT 99
[2024-07-23 15:59] VITALS: BP 110/74; PULSE 77; RESP 2; TEMP 98.1; O2SAT 99
[2024-07-23 20:00] VITALS: BP 131/84; PULSE 78; RESP 19; TEMP 98.6; O2SAT 95
[2024-07-24 04:33] VITALS: BP 103/67; PULSE 67; RESP 19; TEMP 98.4; O2SAT 97
[2024-07-24 08:47] VITALS: BP 121/86; PULSE 64; RESP 19; TEMP 97.6; O2SAT 97
[2024-07-24 16:12] VITALS: BP 119/77; PULSE 75; RESP 20; TEMP 98.1; O2SAT 97
[2024-07-24 19:56] VITALS: BP 107/77; PULSE 77; RESP 18; TEMP 98.1; O2SAT 96
[2024-07-25 04:58] VITALS: BP 109/74; PULSE 70; RESP 18; TEMP 98.1; O2SAT 99
[2024-07-25 07:30] VITALS: BP 108/74; PULSE 62; RESP 19; TEMP 97.8; O2SAT 100
== END 2024-07-25 16:20 | disposition home health service (06) | DRG 383 ==
LOC: EMS 09:31 → EDH 14:03 → 4E 17:53
PROVIDERS: ADMIT Internal Medicine; ATTEND Internal Medicine
PROC: 0JBF0ZZ Excision of Left Upper Arm Subcutaneous Tissue and Fascia, Open Approach (ICD-10-PCS; principal; 2024-07-03 15:00)
DX: L03.114 Cellulitis of left upper limb (principal); L12.0 Bullous pemphigoid; L88 Pyoderma gangrenosum; K21.9 Gastro-esophageal reflux disease without esophagitis; E66.01 Morbid (severe) obesity due to excess calories; B95.61 Methicillin susceptible Staphylococcus aureus infection as the cause of diseases classified elsewhere; L02.414 Cutaneous abscess of left upper limb; L98.429 Non-pressure chronic ulcer of back with unspecified severity; G43.909 Migraine, unspecified, not intractable, without status migrainosus; Z87.891 Personal history of nicotine dependence; Z91.51 Personal history of suicidal behavior; Z68.41 Body mass index [BMI] 40.0-44.9, adult; Z88.1 Allergy status to other antibiotic agents; F32.9 Major depressive disorder, single episode, unspecified
CPT/HCPCS: 71260; 72193; 74160; 80048; 80202; 83605; 85025; 87040; 87070; 87081; 87186; 88304; 96365; 96367; 99285; G0238; G0378; J1644; J2250; J2405; J2543; J2704; J3010; J3490; J7040; J7050; J7060; J7120